=== PATIENT | male | born 1990 | race African-American/Black ===

== ENCOUNTER 2022-05-23 09:09 | Emergency (ER) | payer BC, SELFPAY ==
--- NOTE | 2022-05-23 09:12 | ED.SKABFB ---
HPI - Skin/Abscess/Foreign Bdy General Chief complaint: Skin/Abscess/Foreign Body Stated complaint: rash Time Seen by Provider: 05/23/22 09:11 Source: patient Mode of arrival: ambulatory Limitations: no limitations History of Present Illness HPI narrative: Mr. Bueno is a 31-year-old male patient presenting to the clinic today with complaints of a rash. He reports that this rash has recently developed. He denies that the rash is itching, burning, painful, or swollen. States that the rash is to the left side of his forehead just below his hairline as well as within his goatee on the left side. He denies any new environmental changes, he denies any new soaps, he denies any new shampoos, he denies any foods or medications. He also reports a small lump to the right posterior shoulder that is nontender but worrisome for him. Related Data Allergies Allergy/AdvReac Type Severity Reaction Status Date / Time No Known Allergies Allergy Verified 05/23/22 09:31 Review of Systems Review of Systems: Pertinent positives per HPI. Patient denies any fever, chills, headache, visual changes, dizziness, cough, runny nose, sore throat, shortness of breath, chest pain, palpitations, nausea, vomiting, diarrhea, constipation, abdominal pain, or any urinary issues. PMFSH Comments At the time of my signature, I reviewed and agree with the nursing past medical, surgical, social, and family history. There is no relevant family history pertinent to the patient complaint. Exam Narrative: General: Well-developed, well nourished, in no apparent distress Head: Normocephalic, atraumatic. Cardio: Regular rate and rhythm, s1 and s2 normal, no murmur appreciated. Resp: Clear to auscultation bilaterally, no rhonchi, rales, wheezing or rubs. Integumentary: Aucilla, warm, and dry, intact without lesion, waxy appearing lesions to the left side of patient's face and the goatee area as well as to lesions to the left temporal area just below the hairline, no redness, tenderness, or itching per patient. Has a blackhead pimple to the right posterior shoulder that is nontender without redness or sign of infection Course Course Emergency Course: Portions of this record may have been created with voice recognition software. Level of Care: Express Care Visit Vital Signs Vital signs: Vital Signs Temperature 35.8 C L 05/23/22 09:23 Pulse Rate 68 05/23/22 09:23 Respiratory Rate 16 05/23/22 09:23 Blood Pressure 112/75 05/23/22 09:23 Pulse Oximetry 100 05/23/22 09:23 Oxygen Delivery Room Air 05/23/22 09:23 Temperature 35.8 C L 05/23/22 09:23 Pulse Rate 68 05/23/22 09:23 Respiratory Rate 16 05/23/22 09:23 Blood Pressure 112/75 05/23/22 09:23 Pulse Oximetry 100 05/23/22 09:23 Oxygen Delivery Room Air 05/23/22 09:23 Vital signs reviewed MDM - Skin/Abscess/Foreign Bdy MDM Narrative Medical decision making narrative: At the time of visit patient is resting comfortably on the exam table. I suspect lesions on the patient's face is seborrheic keratosis and that he has a blackhead on the right posterior shoulder. I will send the patient for dermatology referral for possible removal of these seborrheic keratosis as these are bothersome to the patient. Supportive measures were discussed and patient voiced understanding of discharge instructions Differential Diagnosis Differential diagnosis: Likely abscess of skin or subcutaneous tissue, dermatophytosis, cellulitis, eczema and other (Seborrheic keratosis, blackhead) Discharge Plan Discharge Clinical Impression: Keratosis, seborrheic, Black head Patient Disposition: Home, Self-Care Condition: Stable Instructions: Antibiotic Form Additional Instructions: Follow-up with tutoring clinician as discussed-Dr. Rivera tutoring clinician provider in our system however his office location is in [facility] . A list of other local tutoring clinician were given to you Follow-up with your
[2022-05-23 09:23] VITALS: BP 112/75; PULSE 68; RESP 16; TEMP 35.8; O2SAT 100
== END 2022-05-23 09:44 | disposition home or self-care (01) ==
PROVIDERS: Emergency Provider Nurse Practitioner Family
DX: L82.1 Other seborrheic keratosis (principal); L70.0 Acne vulgaris
CPT/HCPCS: 99202; G0463

== ENCOUNTER 2024-01-08 16:52 | Emergency (ER) | payer MEDICAID, SELFPAY ==
[2024-01-08 17:05] VITALS: BP 119/66; PULSE 65; RESP 12; TEMP 37.1; O2SAT 100
--- NOTE | 2024-01-08 17:37 | ED.DENTAL ---
HPI - Dental/Oral General Chief complaint: Dental/Oral Stated complaint: Dental Pain Time Seen by Provider: 01/08/24 17:30 Source: patient and RN notes reviewed Mode of arrival: ambulatory Limitations: no limitations History of Present Illness HPI Narrative: Patient presents today complaining of a 2 day history of left upper dental pain and gum swelling that has worsened since Tuesday. Currently rates his pain 8/10 and has been taking Advil without much relief. He does not currently have a dentist. Denies any shortness of breath or difficulty swallowing. Related Data Home Medications Medication Instructions Recorded Confirmed acetaminophen 300 mg-codeine 30 mg tablet 01/08/24 tablet oxycodone 5 mg tablet mg 01/08/24 Allergies Allergy/AdvReac Type Severity Reaction Status Date / Time No Known Allergies Allergy Verified 05/23/22 09:31 Review of Systems Review of Systems: CONSTITUTIONAL: Denies body aches, fever, chills, or sweats. EYES: Denies visual changes, redness, or discharge. ENT: Denies rhinorrhea, congestion, sore throat, or otalgia.+ tooth pain and facial swelling CARDIOVASCULAR: Denies chest pain, palpitations, or edema. RESPIRATORY: Denies cough or dyspnea. GASTROINTESTINAL: Denies abdominal pain, nausea, vomiting, or diarrhea. GENITOURINARY: Denies dysuria or hematuria. SKIN: Denies rash, itching, or wounds. MUSCULOSKELETAL: Denies back pain, joint pain, or myalgia. NEUROLOGIC: Denies headache, numbness, tingling, or weakness. PSYCH: Denies depression or anxiety. PMFSH Comments At time of signature, I have reviewed and agree with nursing past medical, surgical, social and family history unless otherwise noted. Please see nursing chart for further information. There is no relevant family history pertinent to the presenting complaint Exam Narrative: GENERAL: Well-appearing, well-nourished, and in no acute distress. HEAD: Normocephalic, atraumatic. EYES: EOMI. No redness or drainage. Conjunctivae normal. ENT: Mucous membranes pink and moist. Throat normal. Uvula midline. Mild to moderate swelling of the left upper jaw line. Swelling to the left upper gumline with obvious periapical abscess the posterior gum area. No trismus NECK: Normal AROM. CHEST: No respiratory distress. EXTREMITIES: Normal range of motion. No edema. SKIN: Warm, dry, no rash. Capillary refill normal. Normal skin turgor. NEURO: No focal deficits. Alert and oriented x3. Gait steady. PSYCH: Normal affect. No signs of depression or anxiety. Course Course Level of Care: Express Care Visit Vital Signs Vital signs: Vital Signs Temperature 98.7 F 01/08/24 17:05 Pulse Rate 65 01/08/24 17:05 Respiratory Rate 12 01/08/24 17:05 Blood Pressure 119/66 01/08/24 17:05 Pulse Oximetry 100 01/08/24 17:05 Oxygen Delivery Room Air 01/08/24 17:05 Temperature 98.7 F 01/08/24 17:05 Pulse Rate 65 01/08/24 17:05 Respiratory Rate 12 01/08/24 17:05 Blood Pressure 119/66 01/08/24 17:05 Pulse Oximetry 100 01/08/24 17:05 Oxygen Delivery Room Air 01/08/24 17:05 Reviewed MDM - Dental/Oral MDM Narrative Medical decision making narrative: Patient will be treated with Augmentin and prednisone for his swelling and infection. Instructed to follow-up with a dentist as soon as possible. Anticipatory guidance given. Differential Diagnosis Differential diagnosis: Likely gingival abscess, dental caries and fracture of tooth Critical Care Time Critical Care Time Critical Care Time: No Discharge Plan Discharge Clinical Impression: Dental abscess Patient Disposition: Home, Self-Care Condition: Stable Instructions: Antibiotic Form, Dental Abscess (ED) Additional Instructions: Please take the Augmentin and prednisone as directed. Continue Advil for pain if needed. Follow-up with a dentist as soon as possible for further evaluation and treatment. Go to the ER immediate
== END 2024-01-08 17:45 | disposition home or self-care (01) ==
PROVIDERS: Emergency Provider Nurse Practitioner
DX: K04.7 Periapical abscess without sinus (principal)
CPT/HCPCS: 99213; G0463